=== PATIENT | male | born 1975 | race Caucasian/White ===

== ENCOUNTER 2019-10-11 10:07 | Emergency (ER) | payer OTHER ==
[2019-10-11 10:13] VITALS: BMI 29.2
[2019-10-11] MEDS ORDERED: KETOROLAC TROMETHAMINE 30 MG/1 ML VIAL IVPUSH ONE (10:20)
[2019-10-11] MEDS ORDERED: SODIUM CHLORIDE 1,000 ML IV STA (10:21)
[2019-10-11] MEDS ORDERED: KETOROLAC TROMETHAMINE 30 MG/1 ML VIAL ONE (10:51)
--- NOTE | 2019-10-11 11:01 | PDOC ---
Documentation entered by Colette Limon SCRIBE, acting as scribe for Camelia Oleary MD. Camelia Oleary MD: This documentation has been prepared by the scribe, Colette Nixon SCRIBE, under my direction and personally reviewed by me in its entirety. I confirm that the documentation accurately reflects all work, treatment, procedures, and medical decision making performed by me. Attending Attestation - Resident Resident Name: SaranHimanshu banda - ED Attending Attestation I have performed the following: I have examined & evaluated the patient, The case was reviewed & discussed with the resident, I agree w/resident's findings & plan, Exceptions are as noted - HPI HPI: 44 yo M no significant PMH presents with abrupt onset of abdominal pain and flank pain that woke him from sleep at 6:30am. He states that he ate breakfast, then subsequently vomited with the pain. Denies dysuria, hematuria. Pain resolved upon arrival. Currently pain free. - Physicial Exam PE: GENERAL: Awake, alert, and fully oriented, in no acute distress HEAD: No signs of trauma EYES: PERRLA, EOMI, sclera anicteric, conjunctiva clear ENT: Auricles normal inspection, hearing grossly normal, nares patent, oropharynx clear without exudates. Moist mucosa NECK: Normal ROM, supple, no lymphadenopathy, JVD, or masses LUNGS: Breath sounds equal, clear to auscultation bilaterally. No wheezes, and no crackles HEART: Regular rate and rhythm, normal S1 and S2, no murmurs, rubs or gallops ABDOMEN: Soft, nontender, normoactive bowel sounds. No guarding, no rebound. No masses EXTREMITIES: Normal range of motion, no edema. No clubbing or cyanosis. No cords, erythema, or tenderness NEUROLOGICAL: Cranial nerves II through XII grossly intact. Normal speech, normal gait. Motor and sensation intact SKIN: Warm, dry, normal turgor, no rashes or lesions noted. - Medical Decision Making 10/11/19 11:15 Pt comfortable at present. Symptoms likely due to kidney stone, based on the abrupt appearance then abrupt disappearance of pain, associated with N/V. Will obtain labs, CT. Discharge - Discharge Information Problems reviewed: Yes Clinical Impression/Diagnosis: Kidney stone Condition: Improved Disposition: HOME - Follow up/Referral Referrals: Yrn Brewster MD [Staff Physician] - - Patient Discharge Instructions Patient Printed Discharge Instructions: Kidney Stones -- Adult Additional Instructions: You were seen in the ED for abdominal pain. You were found to have blood in your urinalysis and a stone was vizualized on your CT scan. Drink plenty of fluids, and use ibuprofen for pain control, you may take 600mgs every 8 hours. Should your stone not pass or you desire urology follow up we have provided you with a referral for a urologist. Please follow up with your primary care doctor regarding your stay in the emergency department. Please return to the ED if you experience worsening of your symptoms or any of the following including: blood in your urine, fever, chills, nightsweats, chest pain, shortness of breath, vomiting, increased pain despite taking medications. - Post Discharge Activity Work/Back to School Note: Back to Work
--- NOTE | 2019-10-11 11:06 | PDOC ---
History of Present Illness - General Chief Complaint: Pain, Acute Stated Complaint: ABD PAIN Time Seen by Provider: 10/11/19 10:39 - History of Present Illness Initial Comments: 44 YOM no significant past medical history presents for abdominal since this AM. Patient reports that this morning he had intense 10/10 abdominal pain primarily located on the LLQ, aching in quality, with radiation from scrotum to ribs on left side, nothing makes better or worse, he has not taken anything for it. He also reports some nausea and 2 bouts of vomitting. His last bowel movement was this AM. He denies blood in his urine, stool or vomit. He denies symptoms or changes in bowel movements. Denies h/o abdominal surgeries. 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 Denies CP, SOB, fever or chills. Constitutional: No Weight Change, No Fever, No Chills, No Night Sweats, No Fatigue, No Malaise ENT/Mouth: No Hearing Changes, No Ear Pain, No Nasal Congestion, No Sinus Pain, No Hoarseness, No sore throat, No Rhinorrhea, No Swallowing Difficulty Eyes: No Eye Pain, No Swelling, No Redness, No Foreign Body, No Discharge, No Vision Changes Cardiovascular: No Chest Pain, No SOB, No PND, No Dyspnea on Exertion, No Orthopnea, No Claudication, No Edema, No Palpitations Respiratory: No Cough, No Sputum, No Wheezing, No Smoke Exposure, No Dyspnea Gastrointestinal: No Nausea, No Vomiting, No Diarrhea, No Constipation, No Heartburn, No Anorexia, No Dysphagia, No Hematochezia, No Melena, No Flatulence, No Jaundice Genitourinary: No Dysmenorrhea, No DUB, No Dyspareunia, No Dysuria, No Urinary Frequency, No Hematuria, No Urinary Incontinence, No Urgency, No Flank Pain, No Urinary Flow Changes, No Hesitancy Musculoskeletal: No Arthralgias, No Myalgias, No Joint Swelling, No Joint Stiffness, No Back Pain, No Neck Pain, No Injury History Skin: No Skin Lesions, No Pruritis, No Hair Changes, No Breast/Skin Changes, No Nipple Discharge Neuro: No Weakness, No Numbness, No Paresthesias, No Loss of Consciousness, No Syncope, No Dizziness, No Headache, No Coordination Changes, No Recent Falls Psych: No Anxiety/Panic, No Depression, No Insomnia, No Personality Changes, No Delusions, No Rumination, No SI/HI/AH/VH, No Social Issues, No Memory Changes, No Violence/Abuse Hx., No Eating Concerns Heme/Lymph: No Bruising, No Bleeding, No Transfusions History, No Lymphadenopathy Endocrine: No Polyuria, No Polydipsia, No Temperature Intolerance 10/11/19 14:37 Past History - Medical History Allergies/Adverse Reactions: Allergies Allergy/AdvReac Type Severity Reaction Status Date / Time No Known Allergies Allergy Verified 10/11/19 10:08 COPD: No CHF: No Dementia: No Dialysis: No Disorders: No - Surgical History Gastric Stapling: No Neurologic Surgery: No - Psycho-Social/Smoking History Smoking History: Never smoked - Substance Abuse Hx (Audit-C & DAST Scrn) How often the patient has a drink containing alcohol: Never Score: In Men: 4 or > Positive; In Women: 3 or > Positive: 0 Screen Result (Pos requires Nsg. Audit-10AR): Negative *Physical Exam - Vital Signs Last Vital Signs Temp Pulse Resp BP Pulse Ox 97.4 F L 53 L 30 H 0/0 L 100 10/11/19 10:09 10/11/19 10:09 10/11/19 10:09 10/11/19 10:09 10/11/19 10:09 - Physical Exam General Appearance: Yes: Nourished, Appropriately Dressed HEENT: positive: EOMI, DIOMEDES, Normal ENT Inspection, Normal Voice Neck: positive: Trachea midline, Normal Thyroid Respiratory/Chest: positive: Lungs Clear, Normal Breath Sounds Cardiovascular: positive: Regular Rhythm, Regular Rate, S1, S2 Gastrointestinal/Abdominal: positive: Normal Bowel Sounds, Tender, Flat, Soft Musculoskeletal: positive: Normal Inspection Extremity: positive: Normal Capillary Refill, Normal Inspection Integumentary: positive: Normal Color, Dry, Warm Neurologic: positive: human resource adviser II-XII NML intact, Fully Oriented, Alert, Normal Mood/Affect, Normal Response, Motor Strength 5/5 ED Treatment Course - LABORATORY CBC & Chemistry Diagram: 10/11/19 10:50 10/11/19 10:50 Medical Decision Making - Medical Decision Making 44 YOM no significant past medical history presents for abdominal since this AM. Patient reports that this morning he had intense 10/10 abdominal pain primarily located on the LLQ, aching in quality, with radiation from scrotum to ribs on left side, nothing makes better or worse, he has not taken anything for it. He also reports some nausea and 2 bouts of vomitting. His last bowel movement was this AM. He denies blood in his urine, stool or vomit. He denies symptoms or changes in bowel movements. Denies h/o abdominal surgeries. 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 Denies CP, SOB, fever or chills. Vitals on arrival wnl. Physical exam revealing of TTP in LLQ. ddx: diverticulitis, kidney stone, gastritis, pancreatitis, mesenteric ischemia, AAA, aortic dissection. plan: UA, UC, CBC, CMP, CT abdomen w/o contrast, fluids, pain control with tylenol reassess: CT reveals 4mm stone in ureter on left side, UA reveals 2+ RBCs w/o evidence for infection. Will DC patient to home w/ recommendation to follow up w ith urology. dispo: DC to home Discharge - Discharge Information Problems reviewed: Yes Clinical Impression/Diagnosis: Kidney stone - Admission No - Follow up/Referral Referrals: Yrn Brewster MD [Staff Physician] - - Patient Discharge Instructions Patient Printed Discharge Instructions: Kidney Stones -- Adult Additional Instructions: You were seen in the ED for abdominal pain. You were found to have blood in your urinalysis and a stone was vizualized on your CT scan. Drink plenty of fluids, and use ibuprofen for pain control, you may take 600mgs every 8 hours. Should your stone not pass or you desire urology follow up we have provided you with a referral for a urologist. Please follow up with your primary care doctor regarding your stay in the emergency department. Please return to the ED if you experience worsening of your symptoms or any of the following including: blood in your urine, fever, chills, nightsweats, chest pain, shortness of breath, vomiting, increased pain despite taking medications. - Post Discharge Activity Work/Back to School Note: Back to Work
[2019-10-11 11:23] LABS: BASO % 0.9 % (0-2.0); EOS % 5.3 % (0-4.5); HEMATOCRIT 44.3 % (35.4-49); HEMOGLOBIN 15.1 GM/dL (11.7-16.9); LYMPH % 13.7 % (8-40); MCH 31.3 pg (25.7-33.7); MEAN CELL VOLUME 92.1 fl (80-96); MEAN PLT VOLUME 8.4 fl (7.5-11.1); MONO % 5.4 % (3.8-10.2); NEUT % 74.7 % (42.8-82.8); PLATELET COUNT 262 K/MM3 (134-434); RBC 4.81 M/mm3 (4.00-5.60); RDW 12.9 % (11.9-15.9); WHITE BLOOD COUNT 7.3 K/mm3 (4.0-10.0)
[2019-10-11 12:12] LABS: BILIRUBIN,TOTAL 0.7 mg/dL (0.2-1); BLOOD UREA NITROGEN 15.2 mg/dL (7-18); CALCIUM 9.1 mg/dL (8.5-10.1); POTASSIUM 4.4 mmol/L (3.5-5.1); TOT PROT 6.6 g/dl (6.4-8.2)
[2019-10-11 12:14] LABS: URINE APPEARANCE Clear; URINE BILIRUBIN Negative (NEGATIVE); URINE COLOR Yellow; URINE GLUCOSE (UA) Negative (NEGATIVE); URINE KETONE Trace (NEGATIVE); URINE LEUK ESTERASE Negative (NEGATIVE); URINE NITRITE Negative (NEGATIVE); URINE PROTEIN Negative (NEGATIVE); URINE UROBILINOGEN 0.2 mg/dL (0.2-1.0)
[2019-10-11 14:39] VITALS: BP 109/79; PULSE 63; TEMP 97.6
== END 2019-10-11 14:35 | disposition home or self-care (01) ==
LOC: JER 10:07
PROC: 3E0333Z Introduction of Anti-inflammatory into Peripheral Vein, Percutaneous Approach (ICD-10-PCS; principal; 2019-10-11)
PROC: 3E0337Z Introduction of Electrolytic and Water Balance Substance into Peripheral Vein, Percutaneous Approach (ICD-10-PCS; 2019-10-11)
DX: N20.0 Calculus of kidney (principal)
CPT/HCPCS: 36415; 74176-TC; 80053; 81003; 83690; 85025; 87086; 99285-25